=== PATIENT | female | born 1960 | race Asian ===

== ENCOUNTER 2022-07-01 10:43 | Emergency (ER) | payer OTHER ==
[~2022-07-01] VITALS: Ht 152.4 cm; Wt 55.8 kg
[2022-07-01] MEDS ORDERED: IBUPROFEN600 MG PO (11:11)
[2022-07-01] MEDS ORDERED: SODIUM CHLORIDE 0.9% 1000ML 1,000 ML IV SCH (12:00)
[2022-07-01] MEDS ORDERED: MECLIZINE HCL 12.5 MG TAB ONE (12:12)
[2022-07-01] MEDS ORDERED: SODIUM CHLORIDE 0.9% 1000ML 1,000 ML ONE (12:12)
[2022-07-01] MEDS ORDERED: MECLIZINE HCL 12.5 MG TAB PO ONE (12:15)
[2022-07-01] MEDS ORDERED: NAPROSYN500 MG PO (14:22)
[2022-07-01] MEDS ORDERED: MECLIZINE HCL25 MG PO (14:24)
== END 2022-07-01 14:38 | disposition home or self-care (01) ==
LOC: FSED 10:56
DX: R20.0 Anesthesia of skin (principal); H81.10 Benign paroxysmal vertigo, unspecified ear; R51.9 Headache, unspecified; M54.50 Low back pain, unspecified; G89.29 Other chronic pain
CPT/HCPCS: 70450; 71046; 80053; 81003; 82553; 84484; 85025; 93005; 99284; J7030; J8597